=== PATIENT | female | born 1985 | race Caucasian/White ===

== ENCOUNTER → 2017-05-30 13:59 | Outpatient (CLI) | payer OTHER, SELFPAY ==
[2017-05-30 16:48] LABS: Protein, Urine (Random) 32.9 mg/dL (<11.9); Protein:Creat Ratio 117 mg/g CRE (0-200)
[2017-05-30 16:58] LABS: Glucose Challenge Gest 1H 50g 99 mg/dL (70-140)
== END ==
PROVIDERS: Family Provider Family Medicine; PCP Family Medicine; Visit Provider Obstetrics & Gynecology
DX: Z34.90 Encounter for supervision of normal pregnancy, unspecified, unspecified trimester (principal); O10.919 Unspecified pre-existing hypertension complicating pregnancy, unspecified trimester; Z3A.00 Weeks of gestation of pregnancy not specified
CPT/HCPCS: 82570; 82950; 84156

== ENCOUNTER → 2017-05-30 15:48 | Outpatient (CLI) | payer OTHER, SELFPAY ==
--- NOTE | 2017-05-30 16:30 | US_ITS ---
STUDY: SECOND AND THIRD TRIMESTER OBSTETRICAL ULTRASOUND REASON FOR EXAM: Female, 32 years old. anatomy. LMP: 01/17/2017. TECHNIQUE: Transabdominal. PRIOR ULTRASOUND: None. FINDINGS: There is a single intrauterine fetus. The fetus is in a breech presentation. There is demonstrated cardiac activity with a heart rate of 153 bpm. There is a normal amniotic fluid volume subjectively. The largest amniotic fluid pocket measures 8.3 cm. The placenta is anterior not low-lying. There are Grade 1 placental changes. The cervix measures 4.2 cm in length. The adnexal regions are not visualized. BIOMETRY: BPD: 4.6 cm: 20 weeks, 1 days HC: 17.8 cm: 20 weeks, 2 days AC: 15.5 cm: 20 weeks, 5 days FL: 3.0 cm: 19 weeks, 2 days CI: 76% FL/BPD: 65% FL/AC: 19% HC/AC: 1.2 age by current US: 20 weeks, 1 days. MARIANNE by current US: 10/16/2017. Estimated weight: 327 grams, +/- 48 grams, 94 %. Age by LMP: 19 weeks, 0 days. MARIANNE by LMP: 10/24/2017. ANATOMY: Gender is female. Lateral ventricles, choroid plexus, cerebellum, cisterna magna, face nose and lips were visualized. Four-chamber heart, diaphragm, stomach, abdominal wall, cord insertion, three-vessel cord, kidneys, upper and lower extremities were visualized. Suboptimal visualization of the cervical, thoracic, lumbar spine and sacrum. Bladder was not visualized. US/OB Anatomy Scan IMPRESSION: Single living intrauterine gestation with an estimated gestational age by ultrasound of 20 weeks 1 day. Estimated date of delivery 10/16/2017. Suboptimal visualization of the cervical, thoracic and lumbar spine and sacrum. Bladder not visualized. Electronically Signed: Calvin Jimenez MD at 7:56 EST , Service support ,
== END ==
PROVIDERS: Family Provider Family Medicine; PCP Family Medicine; Visit Provider Nurse Practitioner Women's Health
DX: O09.90 Supervision of high risk pregnancy, unspecified, unspecified trimester (principal); Z3A.00 Weeks of gestation of pregnancy not specified
CPT/HCPCS: 76805

== ENCOUNTER → 2017-06-21 16:13 | Outpatient (CLI) | payer OTHER, SELFPAY ==
[2017-06-21 17:05] LABS: Absolute Lymphocyte Count 1.85 X10^3/ul (0.83-4.51); Absolute Neutrophil Count 7.5 X10^3/uL (2.0-7.7); Basophil# 0.02 X10^3/uL; Basophil% 0.2 % (0-1); Eosinophil# 0.06 X10^3/uL; Eosinophils% 0.6 % (0-5); Hematocrit 33.6 % (37-47); Lymphocyte # 1.85 X10^3/ul (4.0); Lymphocyte % 18.4 % (19-41); Mean Corp Hgb Conc 32.7 g/gl (32-36); Mean Corpuscular Hgb 29.1 pg (27.0-32.0); Mean Corpuscular Volume 88.9 fL (81-99); Mean Platelet Vol. 12.6 fl (6.2-12.0); Neutrophil # 7.47 X10^3/uL (2.7-7.7); Neutrophil % 74.5 % (47-70); Platelet Count 217 K/mm3 (150-450); RBC Distribution Width CV 13.3 % (11.6-14.6); Red Blood Count 3.78 M/mm3 (4.2-5.4)
[2017-06-21 17:14] LABS: POSITIVE COUNT NO; POSITIVE DIFFERENTIAL NO; POSITIVE MORPHOLOGY NO
[2017-06-21 17:17] LABS: ALB/GLOB Ratio 0.7 RATIO (0.9-2.4); AST(SGOT) 12 U/L (15-37); Alanine Aminotransfer ALT/SGPT 16 U/L (13-56); Alkaline Phosphatase 69 U/L (45-117); Anion Gap 9 (5-15); BUN 7 mg/dL (7-18); BUN/Creat Ratio 15.1 RATIO (10-20); Calcium,Total 8.6 mg/dL (8.5-10.1); Chloride 103 mmol/L (98-107); Creatinine, Serum 0.46 mg/dL (0.55-1.02); EST Glomerular Filtration Rate 168 mL/min (>60); Est Glom Filt Rate - Afr Amer 203 mL/min (>60); Globulin 4.1 g/dL (2.2-4.2); Glucose 71 mg/dL (74-106); Potassium 3.9 mmol/L (3.5-5.1); Protein, Total 7.1 g/dL (6.4-8.2); Sodium Level 137 mmol/L (136-145)
[2017-06-21 17:46] LABS: Protein, Urine (Random) 32.5 mg/dL (<11.9); Protein:Creat Ratio 110 mg/g CRE (0-200)
== END ==
PROVIDERS: Family Provider Family Medicine; PCP Family Medicine; Visit Provider Obstetrics & Gynecology
DX: O10.919 Unspecified pre-existing hypertension complicating pregnancy, unspecified trimester (principal); Z3A.00 Weeks of gestation of pregnancy not specified
CPT/HCPCS: 36415; 80053; 82570; 84156; 85025

== ENCOUNTER → 2017-06-27 16:22 | Outpatient (CLI) | payer OTHER, SELFPAY ==
--- NOTE | 2017-06-27 16:24 | US_ITS ---
STUDY: SECOND AND THIRD TRIMESTER OBSTETRICAL ULTRASOUND - LIMITED REASON FOR EXAM: Female, 32 years old. Spine and urinary bladder assessment. LMP: 01/17/2017 PRIOR ULTRASOUND: 05/30/2017 TECHNIQUE: Transabdominal ultrasound evaluation was performed. FINDINGS: There is a single intrauterine fetus. The fetus is in a breech presentation. There is demonstrated cardiac activity with a heart rate of 140 bpm. There is a normal amniotic fluid volume. The largest amniotic fluid pocket measures 5.7 x 3.8 cm.. The placenta is anterior in location and is not low lying. There are Grade 1 placental changes. The cervix measures 3.1 cm in length. BIOMETRY: BPD: 6.1 cm: 25 weeks, 0 days HC: 22.3 cm: 24 weeks, 3 days AC: 19.3 cm: 24 weeks, 1 days FL: 4.1 cm: 23 weeks, 1 days Age by LMP: 23 weeks, 0 days. MARIANNE by LMP: 10/24/2017. MARIANNE by prior US: 10/16/2017. age by current US: 24 weeks, 2 days. MARIANNE by current US: 10/15/2017. Estimated weight: 627 grams, +/- 92 grams, 80 percentile. Gender: Indeterminant US/OB Limited With Biometrics IMPRESSION: Single live intrauterine breech presentation 24 week 2 day gestation with an MARIANNE of 10/15/2017 and appropriate interval growth. Anterior grade 1 placenta, not low lying. Normal amniotic fluid volume by inspection. Cervix length 3.1 cm. Estimated weight 627 g or 8 percentile. Normal spine and urinary bladder. Electronically Signed: Phoebe Martinez MD at 6:54 EST , Service support ,
== END ==
PROVIDERS: Family Provider Family Medicine; PCP Family Medicine; Visit Provider Nurse Practitioner Women's Health
DX: O09.90 Supervision of high risk pregnancy, unspecified, unspecified trimester (principal); Z3A.00 Weeks of gestation of pregnancy not specified
CPT/HCPCS: 76816

== ENCOUNTER → 2017-07-11 15:40 | Outpatient (CLI) | payer OTHER, SELFPAY ==
[2017-07-11 16:18] LABS: Absolute Neutrophil Count 7.1 X10^3/uL (2.0-7.7); Basophil# 0.01 X10^3/uL; Basophil% 0.1 % (0-1); Eosinophil# 0.11 X10^3/uL; Eosinophils% 1.2 % (0-5); Hematocrit 32.6 % (37-47); Hemoglobin 10.5 g/dl (12.0-15.0); Mean Corp Hgb Conc 32.2 g/gl (32-36); Mean Corpuscular Hgb 28.5 pg (27.0-32.0); Mean Corpuscular Volume 88.3 fL (81-99); Mean Platelet Vol. 11.8 fl (6.2-12.0); Monocyte# 0.61 X10^3/uL; Monocyte% 6.5 % (0-10); Neutrophil # 7.13 X10^3/uL (2.7-7.7); Neutrophil % 76.4 % (47-70); Platelet Count 226 K/mm3 (150-450); RBC Distribution Width CV 12.7 % (11.6-14.6); RBC Distribution Width SD 39.7 fl (35.1-43.9); Red Blood Count 3.69 M/mm3 (4.2-5.4); White Blood Count 9.3 K/mm3 (4.4-11.0)
[2017-07-11 16:24] LABS: POSITIVE COUNT NO; POSITIVE DIFFERENTIAL NO; POSITIVE MORPHOLOGY NO
[2017-07-11 16:28] LABS: Protein, Urine (Random) 35.8 mg/dL (<11.9); Protein:Creat Ratio 150 mg/g CRE (0-200)
[2017-07-11 16:40] LABS: ALB/GLOB Ratio 0.7 RATIO (0.9-2.4); AST(SGOT) 13 U/L (15-37); Alanine Aminotransfer ALT/SGPT 10 U/L (13-56); Albumin, Serum 2.8 g/dL (3.2-5.0); Alkaline Phosphatase 75 U/L (45-117); Anion Gap 8 (5-15); BUN 9 mg/dL (7-18); BUN/Creat Ratio 16.1 RATIO (10-20); Calcium,Total 8.8 mg/dL (8.5-10.1); Chloride 104 mmol/L (98-107); Creatinine, Serum 0.56 mg/dL (0.55-1.02); EST Glomerular Filtration Rate 135 mL/min (>60); Est Glom Filt Rate - Afr Amer 164 mL/min (>60); Globulin 4.1 g/dL (2.2-4.2); Glucose 104 mg/dL (74-106); LDH 161 U/L (84-246); Potassium 4.1 mmol/L (3.5-5.1); Protein, Total 6.9 g/dL (6.4-8.2); Sodium Level 138 mmol/L (136-145); Uric Acid 4.3 mg/dL (2.6-6.0)
== END ==
PROVIDERS: Family Provider Family Medicine; PCP Family Medicine; Visit Provider Obstetrics & Gynecology
DX: O10.919 Unspecified pre-existing hypertension complicating pregnancy, unspecified trimester (principal); Z3A.00 Weeks of gestation of pregnancy not specified
CPT/HCPCS: 36415; 80053; 82570; 83615; 84156; 84550; 85025

== ENCOUNTER 2017-07-22 14:40 | Outpatient (CLI) | payer OTHER, SELFPAY ==
[2017-07-22 15:12] VITALS: BMI 42.4
[2017-07-22 15:55] LABS: Hematocrit 30.2 % (37-47); Hemoglobin 9.8 g/dl (12.0-15.0); Mean Corp Hgb Conc 32.5 g/gl (32-36); Mean Corpuscular Hgb 27.9 pg (27.0-32.0); Mean Platelet Vol. 11.7 fl (6.2-12.0); Platelet Count 192 K/mm3 (150-450); RBC Distribution Width CV 13.1 % (11.6-14.6); RBC Distribution Width SD 41.5 fl (35.1-43.9); Red Blood Count 3.51 M/mm3 (4.2-5.4); White Blood Count 9.1 K/mm3 (4.4-11.0)
[2017-07-22 15:56] LABS: Scan Indicated on CBC? Y/N NO
[2017-07-22 16:00] LABS: AST(SGOT) 8 U/L (15-37); Alanine Aminotransfer ALT/SGPT 8 U/L (13-56); Creatinine, Serum 0.44 mg/dL (0.55-1.02); EST Glomerular Filtration Rate 176 mL/min (>60); Est Glom Filt Rate - Afr Amer 213 mL/min (>60); Estimated Creatinine Clearance 168.23 ml/min
[2017-07-22 16:42] LABS: International Normalized Ratio 1.1; Prothrombin Time (Protime)PT. 14.6 SECONDS (11.7-14.9)
[2017-07-22 16:43] LABS: Partial Thromboplast Time 23.9 Seconds (24.1-36.2)
[2017-07-22 16:49] LABS: Protein, Urine (Random) 27.4 mg/dL (<11.9); Protein:Creat Ratio 146 mg/g CRE (0-200)
--- NOTE | 2017-07-22 16:56 | NURSING ---
pt came from office visit for workup already seen by practitioner
--- NOTE | 2017-07-23 14:06 | OB.TRI.NOTE ---
History of Present Illness Date of Service: 07/22/17 Reason For Visit: R/O PRE E Date of Service: 07/22/17 Final MARIANNE: 10/24/17 Gestational age: 26 Weeks and 5 Days History of Present Illness: elevated bps in office, headache intermittent Home Medications Medication Instructions Recorded 1 tab PO QDAY 05/09/17 vitamin,calcium,wcglltdn-moob-mlwfw acid tablet Aspirin, Baby 81 mg PO DAILY 07/22/17 ferrous sulfate 325 mg (65 mg 325 mg PO DAILY tab 07/22/17 iron) tablet metoprolol tartrate 25 mg tablet 25 mg PO BID 07/22/17 Allergies No Known Allergies Allergy (Verified 07/22/17 14:22) NST - FHR Rate Baby A Baseline: 150 Variability:: Moderate Accelerations:: 15 x 15 Decelerations:: None NST Reactive:: Yes FHR Category:: Category I Uterine Activity:: no regular Impression/Plan bps normal and labs normal negative protein in urine, reviewed preeclampsia precautions dc home fu in office next week
== END 2017-07-22 17:05 | disposition home or self-care (01) ==
LOC: WPOUT 14:52 → WP 14:53
PROVIDERS: Family Provider Family Medicine; PCP Family Medicine; Visit Provider Obstetrics & Gynecology
DX: O26.892 Other specified pregnancy related conditions, second trimester (principal); R03.0 Elevated blood-pressure reading, without diagnosis of hypertension; R51 Headache; Z3A.26 26 weeks gestation of pregnancy
CPT/HCPCS: 36415; 59025; 59050; 82565; 82570; 84156; 84450; 84460; 84550; 85027; 85610; 85730; 99218; G0378

== ENCOUNTER 2017-07-29 12:59 | Emergency (ER) | payer OTHER, SELFPAY ==
[2017-07-29 13:01] VITALS: BP 149/102; PULSE 133; RESP 22; TEMP 37.1; O2SAT 98; BMI 41.9
--- NOTE | 2017-07-29 13:27 | CT_ITS ---
STUDY: CTA CHEST REASON FOR EXAM: Female, 32 years old. Shortness of breath, tachycardia and headaches. The patient is 27 weeks . The patient was shielded appropriately. RADIATION DOSAGE (If Supplied By Facility): CTDIvol = ( 16.63 ) mGy, DLP = ( 1193.86 ) mGycm TECHNIQUE: The examination was performed with the intravenous administration of 200 ml of Isovue 370 contrast material. Post-processing of the angiographic images was performed, with multiplanar reformation and 3D reconstruction. Individualized dose optimization techniques were used for this CT. COMPARISON: None. FINDINGS: Small bilateral benign appearing axillary lymph nodes. Normal enhancement of the main pulmonary artery and right and left pulmonary arteries. Normal enhancement of the bilateral peripheral pulmonary arteries. There is no demonstrated pulmonary embolism. Normal thoracic aorta and visualized great vessels. There is no demonstrated aortic dissection. Normal heart and pericardium. Normal mediastinum. Normal hilar regions. Normal visualized trachea and bronchi. The lungs are well expanded. Normal pulmonary parenchyma. Normal pleura. Normal chest wall structures. Normal osseous structures. Normal visualized upper abdomen. CT/CTA Chest W/WO Contrast IMPRESSION: Normal CTA chest examination, without a demonstrated pulmonary embolism or arterial dissection. Electronically Signed: Joss Coleman MD at 15:27 EDT Tel [phone], Service support ,
--- NOTE | 2017-07-29 13:27 | EKG12_ITS ---
Test Reason : SOB Blood Pressure : / mmHG Vent. Rate : 114 BPM Atrial Rate : 114 BPM P-R Int : 126 ms QRS Dur : 078 ms QT Int : 336 ms P-R-T Axes : 038 038 009 degrees QTc Int : 463 ms Sinus tachycardia Otherwise normal ECG Confirmed by VERENICE RANGEL, LORA ([id number]), deputy editor in chief MATT DEE ([id number]) on 08/02/2017 8:27:56 AM Referred By: PRESTON Confirmed By:LORA CALDERA MD
[2017-07-29 13:31] VITALS: BP 155/82; PULSE 122; RESP 18; O2SAT 98
--- NOTE | 2017-07-29 13:34 | ED.DCSUM_ITS ---
- ER Visit Summary Date of Service: 07/29/17 Chief Complaint: Shortness of breath History of Present Illness: The patient is a 32 F with shortness of breath. The patient is AB 3 at 27 weeks. She has had increasing shortness of breath of the past 4 days. This is associated with some lightheadedness and dizziness. She also feels her heart racing. She has some chest tightness. Denies any history of lung disease or PE. She does have a history of chronic hypertension and preeclampsia. She is currently on metoprolol. She does report leg swelling. No fevers. No contractions, vaginal bleeding, or vaginal discharge. She does have positive movement. Physical Examination: 149/102. Afebrile. Heart rate 133. 98% on room air. Patient sitting upright, talking, breathing comfortably. Legs show symmetric peripheral edema. Nontender. Heart tachycardic but regular. Lungs clear. Abdomen gravid. Test Results: EKG, labs, urine, and CT pending. Risks of the CT were discussed and the patient agrees. Emergency Department Course and Treatment: She was placed on a monitor and received a fluid bolus while awaiting results. EKG showed sinus rhythm at a rate of 114. No sign of acute ischemia or infarction pattern. Hemoglobin stable at 10.5. CMP unremarkable. Urinalysis shows some sign of infection with bacteria. Culture pending. Troponin normal. Urine protein/creatinine ratio is 187 CT shows no evidence of PE or dissection. Patient had fluids here and her heart rate has remained in the 110s. She is not hypoxic. Her symptoms have improved. I spoke with Dr. Wang. She had no further recommendations regarding her blood pressure or other symptoms at this time other than to refer the patient to cardiology as an outpatient. I believe this is appropriate, and the patient would like to follow-up as an outpatient. I did speak with Dr. Esteves. He feels that outpatient evaluation is appropriate. At this time, we will hold the patient in the emergency department until the office calls to schedule the appointment. After that she will be discharged. She may return at any time if she has new or worsening symptoms. I advised her that although her tests look okay, they are not perfect and that if she has any new or worsening issues, she should return as she could require admission or further care. Patient was placed on Macrobid. Treatment Plan: As above Disposition: Discharged Impression: 1. Dyspnea 2. Hypertension 3. UTI This note was generated with [employer] dictation software. It may contain incorrect words, spelling, and punctuation that were not noted in review of the chart prior to signing ED Disposition - Plan for ED Patient: Chief Complaint: Shortness of Breath Referrals: Ilir Rutherford [Primary Care Provider] -
[2017-07-29] MEDS: 0.9% Normal Saline 1,000 ML 999 ML IV (13:48)
[2017-07-29 13:55] LABS: Red Blood Cells-Urine 0 SEEN /hpf (0-5)
[2017-07-29 13:58] LABS: Absolute Lymphocyte Count 1.56 X10^3/ul (0.83-4.51); Absolute Neutrophil Count 7.7 X10^3/uL (2.0-7.7); Basophil# 0.01 X10^3/uL; Basophil% 0.1 % (0-1); Eosinophil# 0.08 X10^3/uL; Eosinophils% 0.8 % (0-5); Hemoglobin 10.5 g/dl (12.0-15.0); Lymphocyte # 1.56 X10^3/ul (4.0); Lymphocyte % 15.9 % (19-41); Mean Corp Hgb Conc 32.8 g/gl (32-36); Mean Corpuscular Hgb 28.5 pg (27.0-32.0); Mean Platelet Vol. 11.5 fl (6.2-12.0); Monocyte# 0.49 X10^3/uL; Neutrophil # 7.65 X10^3/uL (2.7-7.7); Neutrophil % 77.7 % (47-70); Platelet Count 210 K/mm3 (150-450); RBC Distribution Width CV 13.1 % (11.6-14.6); RBC Distribution Width SD 40.2 fl (35.1-43.9); Red Blood Count 3.68 M/mm3 (4.2-5.4); White Blood Count 9.8 K/mm3 (4.4-11.0)
[2017-07-29 13:59] LABS: POSITIVE COUNT NO; POSITIVE DIFFERENTIAL NO; POSITIVE MORPHOLOGY NO
[2017-07-29 14:12] LABS: Color, Urine Yellow (Yellow); Glucose, Dipstick Normal (Normal); Ketone-Dipstick 50 mg/dl (Negative); Leukocyte Esterase-Dipstick 500 /ul (Negative); Nitrite-Dipstick Negative (Negative); Occult Blood-Urine Negative /ul (Negative); Protein-Dipstick 15 mg/dl (Negative); Specific Gravity, Urine 1.025 (1.002-1.030); Urine Bilirubin Dipstick Negative (Negative); Urine Clarity Sl. Cloudy (Clear); Urine Urobilinogen Normal (Normal)
[2017-07-29 14:13] LABS: ALB/GLOB Ratio 0.6 RATIO (0.9-2.4); AST(SGOT) 7 U/L (15-37); Alanine Aminotransfer ALT/SGPT 8 U/L (13-56); Albumin, Serum 2.7 g/dL (3.2-5.0); Alkaline Phosphatase 82 U/L (45-117); Anion Gap 9 (5-15); BUN 6 mg/dL (7-18); BUN/Creat Ratio 10.1 RATIO (10-20); Calcium,Total 8.1 mg/dL (8.5-10.1); Chloride 109 mmol/L (98-107); EST Glomerular Filtration Rate 126 mL/min (>60); Est Glom Filt Rate - Afr Amer 152 mL/min (>60); Estimated Creatinine Clearance 123.37 ml/min; Globulin 4.2 g/dL (2.2-4.2); Glucose 86 mg/dL (74-106); Potassium 3.7 mmol/L (3.5-5.1); Protein, Total 6.9 g/dL (6.4-8.2); Sodium Level 141 mmol/L (136-145)
[2017-07-29 14:14] LABS: Bacteria 1+ /hpf (None Seen); Mucous, Urine RARE /hpf (<or=2+); Squamous Epithelial Cells - UA 10-25 SEEN /hpf (5-10); White Blood Cells 5-10 SEEN /hpf (0-5)
[2017-07-29 14:16] LABS: Protein, Urine (Random) 45.4 mg/dL (<11.9); Protein:Creat Ratio 187 mg/g CRE (0-200)
[2017-07-29 15:00] VITALS: BP 150/80; PULSE 111; RESP 16; O2SAT 97
--- NOTE | 2017-07-29 16:05 | ED.DEP ---
ED Disposition - Plan for ED Patient: Chief Complaint: Shortness of Breath Instructions: ED Dyspnea Shortness of Breath Referrals: Liam Esteves MD [STAFF PHYSICIAN] - Comfort Wang MD [STAFF PHYSICIAN] -
--- NOTE | 2017-07-29 16:13 | ED.RN ---
PT INFORMED SHE HAS A DR APPOINTMENT WITH DR CALDERA ON TuesdayAUGUST 05 AT 10AM
[2017-07-29 16:26] VITALS: BP 156/68; PULSE 104; RESP 13; O2SAT 96
[2017-07-29] MEDS: Nitrofurantoin Macrocrystals 100 MG Capsule PO (16:40)
--- NOTE | 2017-07-29 16:48 | ED.RN ---
Verbal and written d/c instructions given. All questions answered. Skin w/d. ABCs intact. Gait steady out of department.
== END 2017-07-29 16:48 | disposition home or self-care (01) ==
LOC: ED 13:43
PROVIDERS: Emergency Provider Emergency Medicine; Family Provider Family Medicine; PCP Family Medicine
DX: O99.89 Other specified diseases and conditions complicating pregnancy, childbirth and the puerperium (principal); R06.00 Dyspnea, unspecified; R00.0 Tachycardia, unspecified; O23.42 Unspecified infection of urinary tract in pregnancy, second trimester; O10.912 Unspecified pre-existing hypertension complicating pregnancy, second trimester; O12.02 Gestational edema, second trimester; O09.892 Supervision of other high risk pregnancies, second trimester; Z3A.27 27 weeks gestation of pregnancy; Z87.442 Personal history of urinary calculi; Z79.899 Other long term (current) drug therapy
CPT/HCPCS: 71275; 80053; 81001; 82570; 84156; 84484; 85025; 87086; 87088; 93005; 96360; 99284; J7030; Q9967; A4216

== ENCOUNTER → 2017-08-01 12:44 | Outpatient (CLI) | payer OTHER, SELFPAY ==
[2017-08-01 14:23] LABS: Absolute Lymphocyte Count 1.33 X10^3/ul (0.83-4.51); Absolute Neutrophil Count 7.3 X10^3/uL (2.0-7.7); Basophil# 0.01 X10^3/uL; Basophil% 0.1 % (0-1); Eosinophils% 1.1 % (0-5); Hematocrit 31.5 % (37-47); Hemoglobin 10.2 g/dl (12.0-15.0); Lymphocyte # 1.33 X10^3/ul (4.0); Lymphocyte % 14.5 % (19-41); Mean Corp Hgb Conc 32.4 g/gl (32-36); Mean Corpuscular Hgb 28.2 pg (27.0-32.0); Mean Platelet Vol. 12.3 fl (6.2-12.0); Monocyte# 0.44 X10^3/uL; Monocyte% 4.8 % (0-10); Neutrophil # 7.26 X10^3/uL (2.7-7.7); Platelet Count 203 K/mm3 (150-450); Red Blood Count 3.62 M/mm3 (4.2-5.4); White Blood Count 9.2 K/mm3 (4.4-11.0)
[2017-08-01 14:24] LABS: POSITIVE COUNT NO; POSITIVE DIFFERENTIAL NO; POSITIVE MORPHOLOGY NO
[2017-08-01 14:42] LABS: Glucose Challenge Gest 1H 50g 143 mg/dL (70-140)
[2017-08-01 17:19] LABS: ALB/GLOB Ratio 0.7 RATIO (0.9-2.4); AST(SGOT) 7 U/L (15-37); Alanine Aminotransfer ALT/SGPT 9 U/L (13-56); Albumin, Serum 2.7 g/dL (3.2-5.0); Alkaline Phosphatase 77 U/L (45-117); Anion Gap 9 (5-15); BUN 10 mg/dL (7-18); BUN/Creat Ratio 19.6 RATIO (10-20); Calcium,Total 8.8 mg/dL (8.5-10.1); Chloride 106 mmol/L (98-107); Creatinine, Serum 0.51 mg/dL (0.55-1.02); EST Glomerular Filtration Rate 150 mL/min (>60); Est Glom Filt Rate - Afr Amer 182 mL/min (>60); Globulin 4.1 g/dL (2.2-4.2); Glucose 82 mg/dL (74-106); Potassium 3.7 mmol/L (3.5-5.1); Protein, Total 6.8 g/dL (6.4-8.2); Sodium Level 138 mmol/L (136-145)
[2017-08-05 08:13] LABS: LDH 121 IU/L (119-226); LDH Fraction 1 29 % (17-32); LDH Fraction 2 36 % (25-40); LDH Fraction 3 22 % (17-27); LDH Fraction 4 8 % (5-13); LDH Fraction 5 5 % (4-20)
== END ==
PROVIDERS: Nurse Practitioner Women's Health; Family Provider Family Medicine; PCP Family Medicine; Visit Provider Obstetrics & Gynecology
DX: O09.891 Supervision of other high risk pregnancies, first trimester (principal); Z3A.00 Weeks of gestation of pregnancy not specified
CPT/HCPCS: 36415; 80053; 82570; 82950; 83615; 83625; 84550; 85025

== ENCOUNTER → 2017-08-08 09:50 | Outpatient (CLI) | payer OTHER, SELFPAY ==
[2017-08-08 11:27] LABS: Glucose GTT-Gestation. Fasting 77 mg/dL (<105)
[2017-08-08 12:14] LABS: Glucose GTT-Gestational 1 Hr 149 mg/dL (<190)
[2017-08-08 13:24] LABS: Glucose GTT-Gestational 2 Hr 116 mg/dL (<165)
[2017-08-08 14:07] LABS: Glucose GTT-Gestational 3 Hr 61 L (<145)
== END ==
PROVIDERS: Family Provider Family Medicine; PCP Family Medicine; Visit Provider Nurse Practitioner Women's Health
DX: O99.810 Abnormal glucose complicating pregnancy (principal); Z3A.00 Weeks of gestation of pregnancy not specified
CPT/HCPCS: 36415; 82951; 82952

== ENCOUNTER → 2017-08-29 14:01 | Outpatient (CLI) | payer OTHER, SELFPAY ==
[2017-08-29 15:08] LABS: Hematocrit 32.4 % (37-47); Hemoglobin 10.1 g/dl (12.0-15.0); Mean Corp Hgb Conc 31.2 g/gl (32-36); Mean Corpuscular Hgb 26.7 pg (27.0-32.0); Mean Corpuscular Volume 85.7 fL (81-99); Mean Platelet Vol. 11.4 fl (6.2-12.0); Platelet Count 219 K/mm3 (150-450); RBC Distribution Width CV 13.9 % (11.6-14.6); RBC Distribution Width SD 43.7 fl (35.1-43.9); Red Blood Count 3.78 M/mm3 (4.2-5.4); Scan Indicated on CBC? Y/N NO; White Blood Count 9.1 K/mm3 (4.4-11.0)
[2017-08-29 15:15] LABS: Protein, Urine (Random) 59.3 mg/dL (<11.9); Protein:Creat Ratio 211 mg/g CRE (0-200)
[2017-08-29 15:35] LABS: ALB/GLOB Ratio 0.6 RATIO (0.9-2.4); AST(SGOT) 9 U/L (15-37); Alanine Aminotransfer ALT/SGPT 8 U/L (13-56); Albumin, Serum 2.6 g/dL (3.2-5.0); Alkaline Phosphatase 86 U/L (45-117); Anion Gap 11 (5-15); BUN 6 mg/dL (7-18); BUN/Creat Ratio 10.3 RATIO (10-20); Calcium,Total 8.3 mg/dL (8.5-10.1); Chloride 107 mmol/L (98-107); Creatinine, Serum 0.58 mg/dL (0.55-1.02); EST Glomerular Filtration Rate 129 mL/min (>60); Est Glom Filt Rate - Afr Amer 156 mL/min (>60); Globulin 4.2 g/dL (2.2-4.2); Glucose 92 mg/dL (74-106); Potassium 3.8 mmol/L (3.5-5.1); Protein, Total 6.8 g/dL (6.4-8.2); Sodium Level 140 mmol/L (136-145)
== END ==
PROVIDERS: Family Provider Family Medicine; PCP Family Medicine
DX: O10.919 Unspecified pre-existing hypertension complicating pregnancy, unspecified trimester (principal); Z3A.00 Weeks of gestation of pregnancy not specified
CPT/HCPCS: 36415; 80053; 82570; 84156; 85027

== ENCOUNTER → 2017-08-30 12:49 | Outpatient (CLI) | payer OTHER, SELFPAY ==
--- NOTE | 2017-08-30 12:51 | ECHOD_ITS ---
Reason For Study: ARRHYTHMIA Procedure This was a 2D Doppler, Color Flow transthoracic echocardiogram. The study was technically difficult. Exam performed in department. Left Ventricle Normal LV size. Left ventricular systolic function is normal. The estimated ejection fraction is 60 %. No evidence for diastolic dysfunction. No regional wall motion abnormalities noted. Right Ventricle Normal RV size. Normal systolic function. Atria Normal left atrium. Normal right atrium. Mitral Valve Mild diffuse mitral valve thickening. Tricuspid Valve Normal tricuspid valve. Aortic Valve Normal aortic valve. Pulmonic Valve Normal pulmonic valve. Great Vessels Normal aortic root. The pulmonary artery is normal size. Normal inferior vena cava. Pericardium/Pleural No pericardial effusion. Medication Unable to use Definity due to . MMode/2D Measurements & Calculations LVIDd: 3.9 cm IVSd: 1.1 cm Ao root diam: 2.6 cm LVIDs: 2.5 cm LVPWd: 1.2 cm RVDd: 2.7 cm FS: 36.9 % LAV(MOD-bp): 55.1 ml EDV(MOD-sp4): 108.8 ml EDV(MOD-sp2): 56.7 ml LAV(MOD-bp) Indexed: 25.3 ml/m2 ESV(MOD-sp4): 57.9 ml EF(MOD-sp2): 47.1 % LAV(MOD-sp2): 61.2 ml EF(MOD-sp4): 46.8 % LAV(MOD-sp4): 49.8 ml SV(MOD-sp4): 50.9 ml SV(MOD-sp2): 26.7 ml LA A4 area: 17.6 cm2 RA A4 area: 12.2 cm2 Doppler Measurements & Calculations MV E max ananda: 78.6 cm/sec Lat Peak E' Ananda: 13.4 cm/sec Med Peak E' Ananda: 8.2 cm/sec MV A max ananda: 75.2 cm/sec E/E' lat: 5.8 E/E' med: 9.6 MV E/A: 1.0 Ao V2 max: 136.1 cm/sec LV V1 max: 158.8 cm/sec PA V2 max: 131.8 cm/sec Ao max P.4 mmHg LV V1 max P.1 mmHg Interpretation Summary Normal LV size. Left ventricular systolic function is normal. The estimated ejection fraction is 60 %. No evidence for diastolic dysfunction. Structurally normal valves. Ordering Physician: Liam Esteves Referring Physician: ROCHELLE WILLOUGHBY MD Performed By: Krys Bell, ZACHARYCS, RVT
== END ==
PROVIDERS: Family Provider Family Medicine; PCP Family Medicine; Visit Provider Internal Medicine Cardiovascular Disease
DX: O10.919 Unspecified pre-existing hypertension complicating pregnancy, unspecified trimester (principal); Z3A.00 Weeks of gestation of pregnancy not specified
CPT/HCPCS: 93306

== ENCOUNTER 2017-09-05 14:10 | Outpatient (CLI) | payer OTHER, SELFPAY ==
[2017-09-05 15:30] VITALS: BMI 43.3
[2017-09-05 15:35] LABS: Hematocrit 30.9 % (37-47); Mean Corp Hgb Conc 32.4 g/gl (32-36); Mean Corpuscular Hgb 27.5 pg (27.0-32.0); Mean Corpuscular Volume 84.9 fL (81-99); Mean Platelet Vol. 11.2 fl (6.2-12.0); Platelet Count 201 K/mm3 (150-450); RBC Distribution Width CV 13.7 % (11.6-14.6); RBC Distribution Width SD 42.4 fl (35.1-43.9); Red Blood Count 3.64 M/mm3 (4.2-5.4); White Blood Count 8.1 K/mm3 (4.4-11.0)
[2017-09-05 15:37] LABS: Scan Indicated on CBC? Y/N NO
[2017-09-05 15:48] LABS: International Normalized Ratio 1.1; Prothrombin Time (Protime)PT. 13.7 SECONDS (11.7-14.9)
[2017-09-05 15:49] LABS: Partial Thromboplast Time 21.3 Seconds (24.1-36.2)
[2017-09-05 15:53] LABS: AST(SGOT) 9 U/L (15-37); Alanine Aminotransfer ALT/SGPT 7 U/L (13-56); Creatinine, Serum 0.48 mg/dL (0.55-1.02); EST Glomerular Filtration Rate 160 mL/min (>60); Est Glom Filt Rate - Afr Amer 193 mL/min (>60); Estimated Creatinine Clearance 154.21 ml/min; Uric Acid 4.7 mg/dL (2.6-6.0)
[2017-09-05 15:56] LABS: Protein, Urine (Random) 50.1 mg/dL (<11.9); Protein:Creat Ratio 182 mg/g CRE (0-200)
--- NOTE | 2017-09-05 23:31 | OB.TRI.NOTE ---
History of Present Illness Date of Service: 09/05/17 Was patient seen by the physician?: Yes Reason For Visit: HIGH BLOOD PRESSURE Final MARIANNE: 10/24/17 Gestational age: 33 Weeks and 0 Days History of Present Illness: 32 yo @ 33 weeks presents with intermittent GIBBONS, had some visual changes and nausea vomiting that are resolved now. she has cHTN and has been on metoprolol with good control. she has had some pink discharge today but denies any lof and admits good fm. co some pelvic pressure Home Medications Medication Instructions Recorded 1 tab PO QDAY 05/09/17 vitamin,calcium,vecikicu-sgdd-kozga acid tablet Aspirin, Baby 81 mg PO DAILY 07/22/17 ferrous sulfate 325 mg (65 mg 325 mg PO DAILY tab 07/22/17 iron) tablet metoprolol tartrate 75 mg tablet 75 mg PO BID #60 tab 08/09/17 cyclobenzaprine 10 mg tablet 10 mg PO TID PRN #30 tab 08/15/17 Allergies No Known Allergies Allergy (Verified 09/01/17 09:30) - Pertinent Past Medical History Pertinent Past Medical History: Past Medical History (Last Reviewed 09/01/17 @ 09:30 by Adelaide Steen) Palpitations (Acute) Shortness of breath (Acute) Sinus tachycardia (Acute) Hypertension (Chronic) Past Surgical History (Last Reviewed 09/01/17 @ 09:30 by Adelaide Steen) delivery delivered (Chronic) H/O knee surgery (Chronic) Mom's Labs & Results 09/05/17 09/05/17 09/05/17 15:20 15:20 15:20 WBC 8.1 RBC 3.64 L Hgb 10.0 L Hct 30.9 L MCV 84.9 MCH 27.5 MCHC 32.4 RDW 13.7 RDW Differential 42.4 Plt Count 201 MPV 11.2 PT 13.7 INR 1.1 APTT 21.3 L Creatinine Estim Creat Clear Calc Est GFR (MDRD) Af Amer Est GFR (MDRD) Non-Af Uric Acid AST ALT U Random Total Protein 50.1 H Urine Creatinine 275.00 Protein/Creatinin Ratio 182 09/05/17 15:20 WBC RBC Hgb Hct MCV MCH MCHC RDW RDW Differential Plt Count MPV PT INR APTT Creatinine 0.48 L Estim Creat Clear Calc 154.21 Est GFR (MDRD) Af Amer 193 Est GFR (MDRD) Non-Af 160 Uric Acid 4.7 AST 9 L ALT 7 L U Random Total Protein Urine Creatinine Protein/Creatinin Ratio Social History Smoking Status Never smoker All Active Problems (Last Reviewed 09/01/17 @ 09:30 by Adelaide Steen) Polyhydramnios affecting (Acute) Palpitations (Acute) Shortness of breath (Acute) Sinus tachycardia (Acute) Abnormal glucose tolerance test during , antepartum (Acute) Anemia in preg-unspec (Acute) History of delivery affecting (Acute) Chronic hypertension during (Acute) Supervision of high-risk (Acute) ROS: general: negative GI: see hpi neuro: see hpi Physical Exam General: Alert, Oriented x3 Cardiovascular: Regular rate Lungs: Normal air movement Abdomen: Soft, Non Tender, Gravid Estimated gestational size: Appropriate for gestational size Cervix Dilation (cm): 0 NST - FHR Rate Baby A Baseline: 150 Variability:: Moderate Accelerations:: 15 x 15 Decelerations:: None NST Reactive:: Yes FHR Category:: Category I Uterine Activity:: no regular Impression/Plan 32 yo @ 33 weeks prsents with threatened PTL and cHTN preeclampsia panel negative cervix not dilated dc home labor and preeclampsia precautions
== END 2017-09-05 16:45 | disposition home or self-care (01) ==
LOC: WPOUT 14:15 → WP 09-06 13:47
PROVIDERS: Family Provider Family Medicine; PCP Family Medicine; Visit Provider Obstetrics & Gynecology
DX: O60.03 Preterm labor without delivery, third trimester (principal); O10.913 Unspecified pre-existing hypertension complicating pregnancy, third trimester; O40.3XX0 Polyhydramnios, third trimester, not applicable or unspecified; O99.810 Abnormal glucose complicating pregnancy; O99.013 Anemia complicating pregnancy, third trimester; D64.9 Anemia, unspecified; O34.219 Maternal care for unspecified type scar from previous cesarean delivery; O09.93 Supervision of high risk pregnancy, unspecified, third trimester; Z3A.33 33 weeks gestation of pregnancy; Z79.82 Long term (current) use of aspirin; Z79.899 Other long term (current) drug therapy
CPT/HCPCS: 36415; 59025; 59050; 82565; 82570; 84156; 84450; 84460; 84550; 85027; 85610; 85730; 99218; G0378

== ENCOUNTER 2017-09-08 13:55 | Outpatient (CLI) | payer OTHER, SELFPAY ==
[2017-09-08 14:07] VITALS: BMI 43.2
--- NOTE | 2017-09-08 14:27 | EKG12_ITS ---
Test Reason : SOB Blood Pressure : / mmHG Vent. Rate : 132 BPM Atrial Rate : 132 BPM P-R Int : 122 ms QRS Dur : 084 ms QT Int : 314 ms P-R-T Axes : 040 029 -10 degrees QTc Int : 465 ms Sinus tachycardia Otherwise normal ECG When compared with ECG of 29-JUL-2017 13:43, T wave inversion more evident in Inferior leads Nonspecific T wave abnormality now evident in Anterolateral leads Confirmed by VERENICE RANGEL, LORA ([id number]), publications editor MATT DEE ([id number]) on 09/13/2017 3:25:39 PM Referred By: Comfort Wang Confirmed By:LORA CALDERA MD
[2017-09-08] MEDS: oxyCODONE 5 MG Tablet 10 MG PO (14:56)
[2017-09-08] MEDS: Acetaminophen 325 MG Tablet 650 MG PO (14:57)
[2017-09-08] MEDS: proMETHazine 25 MG Tablet PO (14:57)
[2017-09-08] MEDS: Lactated Ringers 1,000 ML 999 ML IV (15:00)
--- NOTE | 2017-09-08 15:02 | CT_ITS ---
STUDY: CTA CHEST REASON FOR EXAM: Female, 32 years old. Chronic hypertension and diaphoretic RADIATION DOSAGE (If Supplied By Facility): CTDIvol = ( 14.97 ) mGy, DLP = ( 575.82 ) mGycm TECHNIQUE: The examination was performed with the intravenous administration of 100 ml of Isovue 370 contrast material. Post-processing of the angiographic images was performed, with multiplanar reformation and 3D reconstruction. Individualized dose optimization techniques were used for this CT. COMPARISON: July 29, 2017 FINDINGS: Normal enhancement of the main pulmonary artery and right and left pulmonary arteries. Normal enhancement of the bilateral peripheral pulmonary arteries. There is no demonstrated pulmonary embolism. Normal thoracic aorta and visualized great vessels. There is no demonstrated aortic dissection. Normal heart and pericardium. Normal mediastinum. Normal hilar regions. Normal visualized trachea and bronchi. The lungs are well expanded. There appears to be very mild diffuse interstitial prominence and groundglass opacities possibly representing mild pulmonary interstitial edema. Normal pleura. Normal chest wall structures. Normal osseous structures. Normal visualized upper abdomen. CT/CTA Chest W/WO Contrast IMPRESSION: Findings suggestive of mild pulmonary interstitial edema. However clinical correlation is recommended. No evidence for pulmonary embolus aortic aneurysm periaortic leak or dissection. Electronically Signed: Dick Alvarez MD at 16:18 EDT , Service support ,
[2017-09-08 15:10] LABS: Hematocrit 32.1 % (37-47); Hemoglobin 10.4 g/dl (12.0-15.0); Mean Corp Hgb Conc 32.4 g/gl (32-36); Mean Corpuscular Hgb 27.6 pg (27.0-32.0); Mean Corpuscular Volume 85.1 fL (81-99); Platelet Count 202 K/mm3 (150-450); RBC Distribution Width CV 13.7 % (11.6-14.6); RBC Distribution Width SD 41.8 fl (35.1-43.9); Red Blood Count 3.77 M/mm3 (4.2-5.4); White Blood Count 8.1 K/mm3 (4.4-11.0)
[2017-09-08 15:15] LABS: Scan Indicated on CBC? Y/N NO
[2017-09-08 15:19] LABS: International Normalized Ratio 1.1; Prothrombin Time (Protime)PT. 13.7 SECONDS (11.7-14.9)
[2017-09-08 15:27] LABS: AST(SGOT) 8 U/L (15-37); Alanine Aminotransfer ALT/SGPT 9 U/L (13-56); Creatinine, Serum 0.56 mg/dL (0.55-1.02); EST Glomerular Filtration Rate 135 mL/min (>60); Est Glom Filt Rate - Afr Amer 164 mL/min (>60); Estimated Creatinine Clearance 132.18 ml/min; Uric Acid 5.3 mg/dL (2.6-6.0)
[2017-09-08 15:49] LABS: Protein:Creat Ratio 188 mg/g CRE (0-200)
[2017-09-08] MEDS: Betamethasone/Betamethasone 30 MG/5 ML Vial 12 MG IM (16:45)
--- NOTE | 2017-09-08 17:06 | NURSING ---
pt here from the physicians office see qs charting order received from dr.marcanthony gaspar to [place] home with instr to follow up in the office. pt has been give celestone 12 mg im to right buttock pt will return tomorrow for 2nd shot.
--- NOTE | 2017-09-13 05:15 | OB.TRI.NOTE ---
- Problem List (1) Polyhydramnios affecting Status: Acute Comment: Weekly NST starting at 32 weeks (2) Palpitations Status: Acute (3) Shortness of breath Status: Acute (4) Sinus tachycardia Status: Acute (5) Hypertension Status: Chronic (6) Abnormal glucose tolerance test during , antepartum Status: Acute Comment: 3 hr GTT normal (7) Anemia in preg-unspec Status: Acute Qualifiers: Comment: iron (8) History of delivery affecting Status: Acute Comment: plans RLTCS and BTL at 38 weeks (9) Chronic hypertension during Status: Acute Comment: metoprolol, baby asa, baseline labs; Growth US every 4 weeks, comanage with MFM, weekly nsts 32 on (10) Supervision of high-risk Status: Acute Qualifiers: Comment: PRR MARIANNE 10/24/17 girl Newton MANOHAR AlejandraWilliam Jason History of Present Illness Date of Service: 09/08/17 Was patient seen by the physician?: Yes Reason For Visit: CHRONIC HTN Date of Service: 09/08/17 History of Present Illness: 32 yo at 33 weeks presents with SOB and palpitations, tachycardia. also has been having itnermittent headache and spots in the vision at times. Home Medications Medication Instructions Recorded 1 tab PO QDAY 05/09/17 vitamin,calcium,xhtguiry-skln-apqii acid tablet Aspirin, Baby 81 mg PO DAILY 07/22/17 ferrous sulfate 325 mg (65 mg 325 mg PO DAILY tab 07/22/17 iron) tablet Metoprolol Tartrate 75 mg PO BID 09/09/17 Allergies No Known Allergies Allergy (Verified 09/08/17 13:34) - Pertinent Past Medical History Medical History: Past Medical History (Last Reviewed 09/08/17 @ 13:34 by Adelaide Stene) Palpitations (Acute) Shortness of breath (Acute) Sinus tachycardia (Acute) Hypertension (Chronic) Surgical History: Past Surgical History (Last Reviewed 09/08/17 @ 13:34 by Adelaied Steen) delivery delivered H/O knee surgery Physical Exam General: Alert, Oriented x3 NST - FHR Rate Baby A Baseline: 140 Variability:: Moderate Accelerations:: 15 x 15 Decelerations:: None NST Reactive:: Yes FHR Category:: Category I Impression/Plan ct of chest negative for PE, tachycardia improved with fluids, labs normal. dc home
== END 2017-09-08 17:10 | disposition home or self-care (01) ==
LOC: WPOUT 14:00 → WP 14:01
PROVIDERS: Family Provider Family Medicine; PCP Family Medicine; Visit Provider Obstetrics & Gynecology
DX: O99.89 Other specified diseases and conditions complicating pregnancy, childbirth and the puerperium (principal); R00.0 Tachycardia, unspecified; O40.3XX0 Polyhydramnios, third trimester, not applicable or unspecified; O10.913 Unspecified pre-existing hypertension complicating pregnancy, third trimester; O99.810 Abnormal glucose complicating pregnancy; O99.013 Anemia complicating pregnancy, third trimester; D64.9 Anemia, unspecified; O34.219 Maternal care for unspecified type scar from previous cesarean delivery; O09.93 Supervision of high risk pregnancy, unspecified, third trimester; Z3A.33 33 weeks gestation of pregnancy; Z79.82 Long term (current) use of aspirin; Z79.899 Other long term (current) drug therapy
CPT/HCPCS: 96360; 36415; 59025; 59050; 71275; 82565; 82570; 84156; 84450; 84460; 84550; 85027; 85610; 85730; 93005; 96372; 99218; J7120; Q9967; A4216; G0378; J0702

== ENCOUNTER 2017-09-09 16:50 | Outpatient (CLI) | payer OTHER, SELFPAY ==
[2017-09-09 17:20] VITALS: BMI 42.7
[2017-09-09] MEDS: Betamethasone/Betamethasone 30 MG/5 ML Vial 12 MG IM (17:30)
--- NOTE | 2017-09-11 21:42 | OB.TRI.NOTE ---
History of Present Illness Reason For Visit: INJECTION Home Medications Medication Instructions Recorded 1 tab PO QDAY 05/09/17 vitamin,calcium,cqyuzskl-fbbo-lgmmp acid tablet Aspirin, Baby 81 mg PO DAILY 07/22/17 ferrous sulfate 325 mg (65 mg 325 mg PO DAILY tab 07/22/17 iron) tablet Metoprolol Tartrate 75 mg PO BID 09/09/17 Allergies No Known Allergies Allergy (Verified 09/08/17 13:34) - Pertinent Past Medical History Medical History: Past Medical History (Last Reviewed 09/08/17 @ 13:34 by Adelaide Steen) Palpitations (Acute) Shortness of breath (Acute) Sinus tachycardia (Acute) Hypertension (Chronic) Surgical History: Past Surgical History (Last Reviewed 09/08/17 @ 13:34 by Adelaide Steen) delivery delivered H/O knee surgery Impression/Plan celestone injection second dose
== END 2017-09-09 17:30 | disposition home or self-care (01) ==
LOC: WPOUT 16:59 → WP 16:59
PROVIDERS: Family Provider Family Medicine; PCP Family Medicine; Visit Provider Obstetrics & Gynecology
DX: O99.89 Other specified diseases and conditions complicating pregnancy, childbirth and the puerperium (principal); R00.2 Palpitations; R00.0 Tachycardia, unspecified; R06.02 Shortness of breath; O10.919 Unspecified pre-existing hypertension complicating pregnancy, unspecified trimester; O34.219 Maternal care for unspecified type scar from previous cesarean delivery; Z3A.00 Weeks of gestation of pregnancy not specified; Z79.82 Long term (current) use of aspirin; Z79.899 Other long term (current) drug therapy
CPT/HCPCS: 96372; 99218; G0378; J0702

== ENCOUNTER 2017-09-12 14:52 | Outpatient (CLI) | payer OTHER, SELFPAY ==
[2017-09-12 15:58] VITALS: BMI 42.7
[2017-09-12] MEDS: Acetaminophen 500 MG Tablet 1000 MG PO (16:36)
[2017-09-12 16:39] LABS: Hemoglobin 10.4 g/dl (12.0-15.0); Mean Corp Hgb Conc 31.5 g/gl (32-36); Mean Corpuscular Hgb 26.4 pg (27.0-32.0); Mean Corpuscular Volume 83.8 fL (81-99); Mean Platelet Vol. 11.1 fl (6.2-12.0); Platelet Count 247 K/mm3 (150-450); RBC Distribution Width CV 13.7 % (11.6-14.6); Red Blood Count 3.94 M/mm3 (4.2-5.4); White Blood Count 10.7 K/mm3 (4.4-11.0)
[2017-09-12 16:40] LABS: Scan Indicated on CBC? Y/N NO
[2017-09-12 16:47] LABS: Prothrombin Time (Protime)PT. 13.6 SECONDS (11.7-14.9)
[2017-09-12 16:49] LABS: Partial Thromboplast Time 21.2 Seconds (24.1-36.2)
[2017-09-12 16:58] LABS: AST(SGOT) 11 U/L (15-37); Alanine Aminotransfer ALT/SGPT 10 U/L (13-56); Creatinine, Serum 0.48 mg/dL (0.55-1.02); EST Glomerular Filtration Rate 159 mL/min (>60); Est Glom Filt Rate - Afr Amer 193 mL/min (>60); Estimated Creatinine Clearance 154.21 ml/min; Uric Acid 5.7 mg/dL (2.6-6.0)
[2017-09-12 17:03] LABS: Protein, Urine (Random) 37.5 mg/dL (<11.9); Protein:Creat Ratio 178 mg/g CRE (0-200)
--- NOTE | 2017-09-13 05:19 | OB.TRI.NOTE ---
- Problem List (1) Elevated blood pressure affecting in third trimester, antepartum Status: Acute History of Present Illness Date of Service: 09/12/17 Was patient seen by the physician?: No Reason For Visit: R/O PREECLAMPSIA Date of Service: 09/12/17 Final MARIANNE: 10/24/17 Gestational age: 34 Weeks and 0 Days History of Present Illness: 32 yo presents with headaches and blurry vision intermittently. history of cHTN and has been ruled out weekly for preeclampsia due to similar symptoms. Home Medications Medication Instructions Recorded 1 tab PO QDAY 05/09/17 vitamin,calcium,vkuhyzwx-rwzy-uaynh acid tablet Aspirin, Baby 81 mg PO DAILY 07/22/17 ferrous sulfate 325 mg (65 mg 325 mg PO DAILY tab 07/22/17 iron) tablet Metoprolol Tartrate 75 mg PO BID 09/09/17 Allergies No Known Allergies Allergy (Verified 09/08/17 13:34) - Pertinent Past Medical History Medical History: Past Medical History (Last Reviewed 09/08/17 @ 13:34 by Adelaide Steen) Palpitations (Acute) Shortness of breath (Acute) Sinus tachycardia (Acute) Hypertension (Chronic) Surgical History: Past Surgical History (Last Reviewed 09/08/17 @ 13:34 by Adelaide Steen) delivery delivered H/O knee surgery NST - FHR Rate Baby A Baseline: 140 Variability:: Moderate Impression/Plan elevated bp reactive nst normal labs negative proteinuria. dc home precautions
--- NOTE | 2017-09-13 05:23 | OB.TRI.HP_ITS ---
- Problem List (1) Elevated blood pressure affecting in third trimester, antepartum Status: Acute History of Present Illness Date of Service: 09/12/17 Was patient seen by the physician?: No Reason For Visit: R/O PREECLAMPSIA Date of Service: 09/12/17 Final MARIANNE: 10/24/17 Gestational age: 34 Weeks and 0 Days History of Present Illness: 32 yo presents with headaches and blurry vision intermittently. history of cHTN and has been ruled out weekly for preeclampsia due to similar symptoms. Home Medications Medication Instructions Recorded 1 tab PO QDAY 05/09/17 vitamin,calcium,cgeigutn-mdtt-csrtc acid tablet Aspirin, Baby 81 mg PO DAILY 07/22/17 ferrous sulfate 325 mg (65 mg 325 mg PO DAILY tab 07/22/17 iron) tablet Metoprolol Tartrate 75 mg PO BID 09/09/17 Allergies No Known Allergies Allergy (Verified 09/08/17 13:34) - Pertinent Past Medical History Medical History: Past Medical History (Last Reviewed 09/08/17 @ 13:34 by Adelaide Steen) Palpitations (Acute) Shortness of breath (Acute) Sinus tachycardia (Acute) Hypertension (Chronic) Surgical History: Past Surgical History (Last Reviewed 09/08/17 @ 13:34 by Adelaide Steen) delivery delivered H/O knee surgery NST - FHR Rate Baby A Baseline: 140 Variability:: Moderate Impression/Plan elevated bp reactive nst normal labs negative proteinuria. dc home precautions
== END 2017-09-12 17:38 | disposition home or self-care (01) ==
LOC: LAB 14:52 → WPOUT 15:41 → WP 15:42
PROVIDERS: Family Provider Family Medicine; PCP Family Medicine; Visit Provider Obstetrics & Gynecology
DX: O10.913 Unspecified pre-existing hypertension complicating pregnancy, third trimester (principal); Z3A.34 34 weeks gestation of pregnancy; Z79.82 Long term (current) use of aspirin; Z79.899 Other long term (current) drug therapy
CPT/HCPCS: 36415; 59025; 59050; 82565; 82570; 84156; 84450; 84460; 84550; 85027; 85610; 85730; 99218; A4216; G0378

== ENCOUNTER 2017-09-22 13:15 | Outpatient (CLI) | payer OTHER, SELFPAY ==
[2017-09-22 13:36] LABS: Protein, Urine (Random) 43.6 mg/dL (<11.9); Protein:Creat Ratio 190 mg/g CRE (0-200)
[2017-09-22 13:51] VITALS: BMI 42.5
[2017-09-22 14:23] LABS: Prothrombin Time (Protime)PT. 13.4 SECONDS (11.7-14.9)
[2017-09-22 14:24] LABS: Partial Thromboplast Time 21.7 Seconds (24.1-36.2)
[2017-09-22 14:26] LABS: Hemoglobin 10.5 g/dl (12.0-15.0); Mean Corp Hgb Conc 31.8 g/gl (32-36); Mean Corpuscular Hgb 27.3 pg (27.0-32.0); Mean Corpuscular Volume 85.7 fL (81-99); Mean Platelet Vol. 12.3 fl (6.2-12.0); Platelet Count 189 K/mm3 (150-450); RBC Distribution Width CV 14.7 % (11.6-14.6); RBC Distribution Width SD 43.3 fl (35.1-43.9); Red Blood Count 3.85 M/mm3 (4.2-5.4); White Blood Count 8.5 K/mm3 (4.4-11.0)
[2017-09-22 14:30] LABS: AST(SGOT) 11 U/L (15-37); Alanine Aminotransfer ALT/SGPT 9 U/L (13-56); Creatinine, Serum 0.56 mg/dL (0.55-1.02); EST Glomerular Filtration Rate 136 mL/min (>60); Est Glom Filt Rate - Afr Amer 165 mL/min (>60); Scan Indicated on CBC? Y/N NO; Uric Acid 6.4 mg/dL (2.6-6.0)
--- NOTE | 2017-09-24 09:35 | OB.TRI.NOTE ---
- Problem List (1) Chronic hypertension during Status: Acute Comment: metoprolol, baby asa, baseline labs; Growth US every 4 weeks, comanage with MFM, weekly nsts 32 on History of Present Illness Allergies No Known Allergies Allergy (Verified 09/22/17 14:47) - Pertinent Past Medical History Medical History: Past Medical History (Last Reviewed 09/22/17 @ 13:16 by Adelaide Steen) Sinus tachycardia (Acute) symptomatic at times, on metoprolol, negat CT chest, s/p cardio consult, nl echo Palpitations (Ruled-out) Shortness of breath (Ruled-out) Surgical History: Past Surgical History (Last Reviewed 09/22/17 @ 13:16 by Adelaide Steen) delivery delivered H/O knee surgery NST - FHR Rate Baby A Baseline: 150 Variability:: Moderate Accelerations:: 15 x 15 Decelerations:: None NST Reactive:: Yes FHR Category:: Category I Impression/Plan elevated bps, normal labs and negative proteinuria- all normal bps here in triage. dc home preeclampsia precautions
== END 2017-09-22 16:23 | disposition home or self-care (01) ==
LOC: WPOUT 13:43 → LABSPEC 13:45 → WP 13:45
PROVIDERS: Family Provider Family Medicine; PCP Family Medicine; Visit Provider Obstetrics & Gynecology
DX: O10.919 Unspecified pre-existing hypertension complicating pregnancy, unspecified trimester (principal); Z3A.00 Weeks of gestation of pregnancy not specified; Z79.899 Other long term (current) drug therapy
CPT/HCPCS: 36415; 59025; 59050; 82565; 82570; 84156; 84450; 84460; 84550; 85027; 85610; 85730; 99218; G0378

== ENCOUNTER 2017-09-28 22:40 | Inpatient (IN) | payer OTHER, SELFPAY ==
--- NOTE | 2017-09-28 22:40 | DT_ITS ---
This patient was seen during an EMR downtime September 26, 2017 - October 03, 2017. This patient may have a combination of paper and electronic documentation or all paper documentation. All documentation is viewable within the e-chart portion of [employer] for each patient visit.
--- NOTE | 2017-09-29 04:35 | FALS_PTH ---
PATIENT: TRINO HOANG LOC: [facility] U#:[id number] AGE/SX: 32/F ROOM: WP020 RE09/28/[address]: Dr. Comfort Wang MD : [id number] BED: 1 DIS: 10/02/2017 SPEC #: [id number] RECD: 09/29/17 04:48 STATUS: YAMINI GRAHAM #: [id number] JOSE G: 09/29/17 04:[address]: Comfort Wang DEPT: SURGICAL PATHOLOGY RECD BY: Osman Martin ENTERED: 09/30/17 07:53 SP TYPE: FALL TUBES OTHR DR: Dr. Ilir Rutherford MD Tissues: Fallopian tube Procedures: Surgery Specimen Level II HEADER OPERATION: Bilateral tubal occlusion PRE-OP DIAGNOSIS: Desires sterilization TISSUE SUBMITTED: Fallopian tube segments x2 MICROSCOPIC DIAGNOSIS Fallopian tube segments x2: Completely transected segments of bilateral fallopian tubes, no pathologic diagnosis. SJ:isa 09/30/17 MICROSCOPIC DESCRIPTION Slides are reviewed. GROSS DESCRIPTION Received is one container labeled with the patient's name and designated bilateral fallopian tubes. The specimen consists of two tubular pieces of pink-alas soft tissue with the left tube identified by a suture and measures 2 cm in length and 0.5 cm in diameter and is inked black. The right fallopian tube measures 0.5 cm in length and 2.5 cm in diameter. The entire specimen is submitted in one cassette. Both pieces will be sectioned at the time of embedding. / RAJESH:isa 09/29/17 TC:4 CPT: 39741 x2
[2017-10-01 13:42] LABS: Protein:Creat Ratio 210 mg/g CRE (0-200)
[2017-10-01 14:19] LABS: Fibrinogen 552 mg/dl (203-444); Hematocrit 34.2 % (37-47); Hemoglobin 10.9 g/dl (12.0-15.0); Mean Corp Hgb Conc 31.9 g/gl (32-36); Mean Corpuscular Hgb 27.1 pg (27.0-32.0); Mean Corpuscular Volume 85.1 fL (81-99); Mean Platelet Vol. 12.5 fl (6.2-12.0); Partial Thromboplast Time 21.5 Seconds (24.1-36.2); Platelet Count 190 K/mm3 (150-450); Prothrombin Time (Protime)PT. 13.4 SECONDS (11.7-14.9); RBC Distribution Width CV 15.7 % (11.6-14.6); RBC Distribution Width SD 48.3 fl (35.1-43.9); Red Blood Count 4.02 M/mm3 (4.2-5.4); Scan Indicated on CBC? Y/N NO; White Blood Count 8.9 K/mm3 (4.4-11.0)
[2017-10-03 08:27] LABS: ALB/GLOB Ratio 0.6 RATIO (0.9-2.4); AST(SGOT) 10 U/L (15-37); Alanine Aminotransfer ALT/SGPT 10 U/L (13-56); Albumin, Serum 2.7 g/dL (3.2-5.0); Alkaline Phosphatase 101 U/L (45-117); BUN 13 mg/dL (7-18); BUN/Creat Ratio 18.8 RATIO (10-20); Calcium,Total 8.8 mg/dL (8.5-10.1); Creatinine, Serum 0.69 mg/dL (0.55-1.02); EST Glomerular Filtration Rate 106 mL/min (>60); Est Glom Filt Rate - Afr Amer 128 mL/min (>60); Globulin 4.2 g/dL (2.2-4.2); Glucose 107 mg/dL (74-106); Protein, Total 6.9 g/dL (6.4-8.2); Sodium Level 140 mmol/L (136-145)
[2017-10-03 08:28] LABS: Anion Gap 12 (5-15); Chloride 107 mmol/L (98-107); Potassium 4.2 mmol/L (3.5-5.1)
[2017-10-03 17:17] LABS: Hematocrit 28.4 % (37-47); Hemoglobin 8.9 g/dl (12.0-15.0); Mean Corp Hgb Conc 31.3 g/gl (32-36); Mean Corpuscular Hgb 27.1 pg (27.0-32.0); Mean Corpuscular Volume 86.3 fL (81-99); Mean Platelet Vol. 11.9 fl (6.2-12.0); Platelet Count 145 K/mm3 (150-450); RBC Distribution Width CV 16.2 % (11.6-14.6); Scan Indicated on CBC? Y/N NO; White Blood Count 7.7 K/mm3 (4.4-11.0)
== END 2017-10-02 11:00 | disposition home or self-care (01) | DRG 766 ==
PROVIDERS: Admitting Provider Obstetrics & Gynecology; Family Provider Family Medicine; PCP Family Medicine; Visit Provider Obstetrics & Gynecology
DX: O14.14 Severe pre-eclampsia complicating childbirth (principal); O60.14X0 Preterm labor third trimester with preterm delivery third trimester, not applicable or unspecified; Z3A.36 36 weeks gestation of pregnancy; Z37.0 Single live birth
CPT/HCPCS: 59050; 80053; 82570; 84156; 85027; 85384; 85610; 85730; 86850; 86900; 88302; 99218; J7120; A4216; G0378; J2405